=== PATIENT | female | born 1990 | race Caucasian/White ===

== ENCOUNTER → 2020-08-23 11:45 | Outpatient (CLI) | payer BC, SELFPAY ==
[2020-08-26 12:07] LABS: Garlic <0.10 kU/L (Class 0); Gluten <0.10 kU/L (Class 0); Oat <0.10 kU/L (Class 0); Orange <0.10 kU/L (Class 0); Pea <0.10 kU/L (Class 0); Rice <0.10 kU/L (Class 0); SESAME SEED <0.10 kU/L (Class 0); Strawberry <0.10 kU/L (Class 0); Tomato 0.16 kU/L (Class 0/I); Wheat <0.10 kU/L (Class 0); Yeast <0.10 kU/L (Class 0)
[2020-08-26 16:21] LABS: Apple <0.10 kU/L (Class 0); Soybean <0.10 kU/L (Class 0)
== END ==
PROVIDERS: Referring Provider Otolaryngology; Visit Provider Otolaryngology
DX: T78.40XA Allergy, unspecified, initial encounter (principal)
CPT/HCPCS: 36415; 86003